=== PATIENT | female | born 1990 ===

== ENCOUNTER 2017-03-26 15:37 | Emergency (ER) | payer OTHER ==
[2017-03-26] MEDS: NS 0.9% 1000 ML* 1,000 ML IV ONE ×2 (16:30→17:59)
[2017-03-26] MEDS ORDERED: Dexamethasone IV* 4 MG/ML 1 ML (4 MG) ONE (16:36)
[2017-03-26] MEDS: Dexamethasone IV* 8 MG in NS 0.9% 50 ML* 50 ML IVPB ONE (16:42)
--- NOTE | 2017-03-26 16:45 | UC ---
Respiratory Complaint HPI - HPI Summary HPI Summary: 27 year old female with no significant pmhx here with sore throat and myalgia that started 4 days ago. She reports she felt lightheaded, and she also developed fever and right earache. She reports nausea with no vomiting or diarrhea. She reports light cough but no runny nose. Also reports she lost her voice in the past few days. - History of Current Complaint Chief Complaint: UCGeneralIllness Stated Complaint: FEVER, EAR ACHE, AND SORE THROAT Time Seen by Provider: 03/26/17 16:04 Hx Obtained From: Patient Hx Last Menstrual Period: breast feeding Onset/Duration: Gradual Onset Character: Cough: Nonproductive Aggravating Factors: Nothing Alleviating Factors: Nothing Associated Signs And Symptoms: Positive: URI, Nasal Congestion - Allergies/Home Medications Allergies/Adverse Reactions: Allergies Allergy/AdvReac Type Severity Reaction Status Date / Time No Known Allergies Allergy Verified 03/26/17 15:52 PMH/Surg Hx/FS Hx/Imm Hx - Surgical History Surgical History: None - Social History Alcohol Use: Occasionally Substance Use Type: None Smoking Status (MU): Former Smoker Review of Systems Constitutional: Fever ENT: Sore Throat, Ear Ache Respiratory: Cough Cardiovascular: Palpitations Gastrointestinal: Nausea Genitourinary: Negative Musculoskeletal: Negative Neurological: Negative All Other Systems Reviewed And Are Negative: Yes Physical Exam Triage Information Reviewed: Yes Appearance: Well-Appearing, Other: - orthstatic symptoms Vital Signs: Initial Vital Signs Temp 37.4 C 03/26/17 15:52 Pulse 122 03/26/17 15:52 Resp 20 03/26/17 15:52 BP 133/73 03/26/17 15:52 Pulse Ox 100 03/26/17 15:52 Vital Signs Reviewed: Yes ENT: Positive: Pharyngeal erythema, Nasal congestion, Other - dry mucosal membrane. Negative: TM bulging, TM dull, TM red, Tonsillar swelling, Tonsillar exudate, Sinus tenderness Neck: Positive: Supple Respiratory: Positive: Chest non-tender, Lungs clear, Normal breath sounds, No respiratory distress Cardiovascular: Positive: Other: - tachy Abdomen Description: Positive: Nontender, No Organomegaly, Soft Neurological Exam: Normal Skin Exam: Normal UC Diagnostic Evaluation - Laboratory O2 Sat by Pulse Oximetry: 100 - EKG Cardiac Rate: Tachycardia Cardiac Rhythm: Sinus: Normal ST Segment: Non-Specific Re-Evaluation - Re-Evaluation First Eval Change: Improved - Patient VS improved. She also feels better. Respiratory Course/Dx - Course Course Of Treatment: Viral illness with orthostatic symptoms. - Differential Dx/Diagnosis Differential Diagnosis/HQI/PQRI: Laryngitis, Lower Resp Infection, Sinusitis Provider Diagnoses: Viral pharyngitis/laryngitis Discharge - Discharge Plan Condition: Good Disposition: HOME Prescriptions: Ibuprofen [Motrin Ib] 400 mg PO Q6H PRN #20 tab PRN Reason: Pain Patient Education Materials: Viral Syndrome (ED) Referrals: Elisabeth Reyes MD [Primary Care Provider] -
[2017-03-26] MEDS: Dexamethasone IV* 10 MG in NS 0.9% 50 ML* 50 ML IVPB ONE (16:56)
[2017-03-26] MEDS: Acetaminophen TAB* 325 MG PO ONE (17:57)
== END 2017-03-26 19:15 | disposition home or self-care (01) ==
LOC: UCEAST 15:37
DX: J04.0 Acute laryngitis (principal)
CPT/HCPCS: 87502; 93005; 96360; 96365; 99202; A9270-GY; G0463; J1100

== ENCOUNTER → 2017-04-01 18:03 | Emergency (ER) | payer OTHER ==
--- NOTE | 2017-04-01 20:24 | UC ---
FLU HPI - HPI Summary HPI Summary: 03/26 dx with a viral illness, has continued cough and a sensation of dizziness (actually vertigo as patient describes spinning with head movement) - History of Current Complaint Chief Complaint: UCDizziness Stated Complaint: LIGHT-HEADED,COLD,COUGH Time Seen by Provider: 04/01/17 20:21 Hx Obtained From: Patient Hx Last Menstrual Period: breast feeding ?: No Onset/Duration: Gradual Onset, Lasting Days Severity Currently: Mild Severity Initially: Moderate Associated Signs & Symptoms: Positive: Negative - Allergy/Home Medications Allergies/Adverse Reactions: Allergies Allergy/AdvReac Type Severity Reaction Status Date / Time No Known Allergies Allergy Verified 03/26/17 15:52 PMH/Surg Hx/FS Hx/Imm Hx Previously Healthy: Yes - Surgical History Surgical History: None - Family History Known Family History: Positive: None - Social History Occupation: Employed Full-time Lives: With Family Alcohol Use: Weekly Alcohol Amount: 2 drinks per week Substance Use Type: None Smoking Status (MU): Former Smoker Review of Systems Constitutional: Negative Skin: Negative Eyes: Negative ENT: Nasal Discharge, Sinus Congestion Respiratory: Cough Cardiovascular: Negative Gastrointestinal: Negative Genitourinary: Negative Motor: Negative Neurovascular: Negative Musculoskeletal: Negative Neurological: Negative Psychological: Negative Is Patient Immunocompromised?: No All Other Systems Reviewed And Are Negative: Yes Physical Exam Triage Information Reviewed: Yes Appearance: Well-Appearing, No Pain Distress, Well-Nourished Vital Signs: Initial Vital Signs Temp 97.8 F 04/01/17 18:11 Pulse 92 04/01/17 18:11 Resp 16 04/01/17 18:11 BP 122/83 04/01/17 18:11 Pulse Ox 100 04/01/17 18:11 Vital Signs Reviewed: Yes Eye Exam: Normal Eyes: Positive: Conjunctiva Clear ENT Exam: Normal ENT: Positive: Normal ENT inspection, Hearing grossly normal, Pharynx normal, Nasal drainage, TMs normal, Uvula midline. Negative: Tonsillar swelling, Tonsillar exudate, Trismus, Muffled voice, Hoarse voice, Dental tenderness, Sinus tenderness Dental Exam: Normal Neck exam: Normal Neck: Positive: Supple, Nontender, No Lymphadenopathy Respiratory Exam: Normal Respiratory: Positive: Chest non-tender, Lungs clear, Normal breath sounds, No respiratory distress, No accessory muscle use Cardiovascular Exam: Normal Cardiovascular: Positive: RRR, No Murmur, Pulses Normal, Brisk Capillary Refill Abdominal Exam: Normal Abdomen Description: Positive: Nontender, No Organomegaly, Soft Bowel Sounds: Positive: Present Musculoskeletal Exam: Normal Musculoskeletal: Positive: Strength Intact, ROM Intact, No Edema Neurological Exam: Normal Neurological: Positive: Alert, Muscle Tone Normal Psychological Exam: Normal Skin Exam: Normal Diagnostics - Laboratory Diagnostic Studies Completed/Ordered: trace ketones and sg 1.015 urine Flu Course/Dx - Course Course Of Treatment: rest increase fluids follow with pcp prn - Differential Dx/Diagnosis Provider Diagnoses: Viral illness, mild dehydration Discharge - Discharge Plan Condition: Stable Disposition: HOME Patient Education Materials: Dehydration (ED), Viral Syndrome (ED) Forms: *Work Release Referrals: Elisabeth Reyes MD [Primary Care Provider] - 5 Days
[2017-04-01 20:42] VITALS: BP 129/85
== END | disposition home or self-care (01) ==
LOC: UCEAST 18:03
DX: B34.9 Viral infection, unspecified (principal); E86.0 Dehydration; R42 Dizziness and giddiness; Z87.891 Personal history of nicotine dependence
CPT/HCPCS: 81003; 81025; 99211; G0463

== ENCOUNTER 2018-03-13 16:06 | Emergency (ER) | payer OTHER ==
[2018-03-13 16:32] VITALS: BP 131/82
--- NOTE | 2018-03-13 17:32 | UC ---
Respiratory Complaint HPI - HPI Summary HPI Summary: 28 year old female here with complaint of sore throat for 3 days. Reports subjective fever along with cough. No odynophagia. Back pain She reports she twisted her back last week and developed pain. Reports sharp pain, lower back with no radiation to leg. Worsened with movement. Took ibuprofen with partial relief but stopped taking ibuprofen because she is breast feeding. No other complaints. - History of Current Complaint Chief Complaint: UCGeneralIllness Stated Complaint: SORE THROAT,BACK PAIN Time Seen by Provider: 03/13/18 17:15 Hx Obtained From: Patient Hx Last Menstrual Period: 2 months ago Onset/Duration: Sudden Onset, Gradual Onset Severity Initially: Mild Severity Currently: Mild Pain Intensity: 3 Character: Cough: Productive Associated Signs And Symptoms: Positive: Edema, URI, Nasal Congestion. Negative : Dyspnea, Wheezing, Hemoptysis, Hoarseness, Sinus Discomfort - Allergies/Home Medications Allergies/Adverse Reactions: Allergies Allergy/AdvReac Type Severity Reaction Status Date / Time No Known Allergies Allergy Verified 03/13/18 16:24 Home Medications: Home Medications Phenylephrine/Dm/Acetaminop/GG [Tylenol Cold-Flu Severe Caplet] 1 each PO ONCE 03/13/18 [History Confirmed 03/13/18] PMH/Surg Hx/FS Hx/Imm Hx Previously Healthy: Yes - Surgical History Surgical History: None - Family History Known Family History: Positive: None - Social History Alcohol Use: None Alcohol Amount: 2 drinks per week Substance Use Type: None Smoking Status (MU): Former Smoker Review of Systems All Other Systems Reviewed And Are Negative: Yes Physical Exam Appearance: Well-Appearing Vital Signs: Initial Vital Signs Temp 36.6 C 03/13/18 16:25 Pulse 95 03/13/18 16:25 Resp 16 03/13/18 16:25 BP 131/82 03/13/18 16:25 Pulse Ox 100 03/13/18 16:25 ENT: Positive: Pharyngeal erythema, Nasal drainage, TMs normal. Negative: Tonsillar swelling, Tonsillar exudate, Hoarse voice, Sinus tenderness Respiratory Exam: Normal Cardiovascular Exam: Normal Abdominal Exam: Normal Musculoskeletal: Positive: Strength Intact, ROM Intact, Other: - no midline tenderness in her back Neurological Exam: Normal Skin Exam: Normal UC Diagnostic Evaluation - Laboratory O2 Sat by Pulse Oximetry: 100 Respiratory Course/Dx - Course Course Of Treatment: Rapid strep negative. Will rx flexril for back pain. Ibuprofen for pain - Differential Dx/Diagnosis Differential Diagnosis/HQI/PQRI: Bronchitis, Laryngitis, Sinusitis Provider Diagnosis: URI (upper respiratory infection), Lower back pain Discharge - Sign-Out/Discharge Documenting (check all that apply): Patient Departure All imaging exams completed and their final reports reviewed: Yes - Discharge Plan Condition: Good Disposition: HOME Prescriptions: Cyclobenzaprine TAB* [Flexeril 10 MG TAB*] 10 mg PO BID PRN #20 tab PRN Reason: back pain Naproxen [Naproxen 500 mg tab] 500 mg PO BID PRN #20 tablet.dr PRN Reason: back pain Patient Education Materials: Upper Respiratory Infection (ED), Low Back Strain (ED) Referrals: Elisabeth Reyes MD [Primary Care Provider] - - Billing Disposition and Condition Condition: GOOD Disposition: Home
== END 2018-03-13 17:57 | disposition home or self-care (01) ==
LOC: UCEAST 16:06
DX: J06.9 Acute upper respiratory infection, unspecified (principal); M54.5 Low back pain; Z87.891 Personal history of nicotine dependence
CPT/HCPCS: 87651; 99212; G0463